=== PATIENT | male | born 1965 | race Caucasian/White ===

== ENCOUNTER 2017-05-10 10:51 | Emergency (ER) | payer BC, OTHER ==
[2017-05-10 11:19] VITALS: BP 145/89
[2017-05-10] MEDS ORDERED: Ketorolac INJ* 30 MG/ML 1 ML VIAL IM ONE (11:27)
--- NOTE | 2017-05-10 11:35 | UC ---
Headache HPI - HPI Summary HPI Summary: patient has been out of his BP medication for the last 3 weeks, he has had a headache on and off for the past 2 weeks, and thinks it is related to not having his BP meds. The headache is located at both temples and is dull. VS stable. - History Of Current Complaint Chief Complaint: UCHeadache Stated Complaint: MED REFILL Time Seen by Provider: 05/10/17 11:20 Hx Obtained From: Patient Onset/Duration: Sudden Onset, Lasting Days Onset Of Symptoms: Gradual, Still Present Timing: Constant, Days Character: Dull Location of Headache: Temporal Aggravating Factor: Nothing Allevating Factors: Nothing Associated Signs And Symptoms: Positive: Negative - Allergies/Home Medications Allergies/Adverse Reactions: Allergies Allergy/AdvReac Type Severity Reaction Status Date / Time Penicillins Allergy Unknown Verified 05/10/17 11:19 Reaction Details PMH/Surg Hx/FS Hx/Imm Hx Previously Healthy: Yes - Surgical History Surgical History: None - Family History Known Family History: Positive: Hypertension - Social History Alcohol Use: None Substance Use Type: None Smoking Status (MU): Never Smoked Tobacco Review of Systems Constitutional: Negative Skin: Negative Eyes: Negative ENT: Negative Respiratory: Negative Cardiovascular: Negative Gastrointestinal: Negative Genitourinary: Negative Motor: Negative Neurovascular: Negative Musculoskeletal: Negative Neurological: Headache Psychological: Negative All Other Systems Reviewed And Are Negative: Yes Physical Exam Triage Information Reviewed: Yes Appearance: Well-Appearing, Well-Nourished, Pain Distress Vital Signs: Initial Vital Signs Temp 98 F 05/10/17 11:14 Pulse 52 05/10/17 11:14 Resp 14 05/10/17 11:14 BP 145/89 05/10/17 11:14 Pulse Ox 100 05/10/17 11:14 Vital Signs Reviewed: Yes Eye Exam: Normal Eyes: Positive: Conjunctiva Clear ENT Exam: Normal ENT: Positive: Normal ENT inspection, Hearing grossly normal, Pharynx normal, TMs normal Dental Exam: Normal Neck exam: Normal Respiratory Exam: Normal Respiratory: Positive: Chest non-tender, Lungs clear, Normal breath sounds Cardiovascular Exam: Normal Cardiovascular: Positive: RRR, No Murmur, Pulses Normal Abdominal Exam: Normal Abdomen Description: Positive: Nontender, No Organomegaly, Soft Bowel Sounds: Positive: Present Musculoskeletal Exam: Normal Musculoskeletal: Positive: Strength Intact, ROM Intact, No Edema Neurological Exam: Normal Neurological: Positive: Alert, Muscle Tone Normal Psychological Exam: Normal Skin Exam: Normal Headache Course/Dx - Course Course Of Treatment: hx obtained, exam performed ,meds reviewed, toradol given for headache, refill of lisinopril prescribed, recommend follow up with Dr Zheng before script runs out, or BP is not well controlled. - Differential Dx/Diagnosis Differential Diagnosis/HQI/PQRI: TIA, Sinus Headache, Temporal Arteritis, Tension Headache Provider Diagnoses: Hypertension. headache, tension Discharge - Discharge Plan Condition: Stable Disposition: HOME Prescriptions: Lisinopril TAB* [Prinivil TAB*] 10 mg PO DAILY #60 Patient Education Materials: Tension Headache (ED) Additional Instructions: 1. Take the medication as prescribed. 2. You received a shot of toradol at 1130 this morning, do not take any NSAID until after 7:30 tonight. you may use tylenol or excedrin 3. Follow up with Dr Zheng before the medication runs out or if symptoms persist.
== END 2017-05-10 11:50 | disposition home or self-care (01) ==
LOC: UCCORT 10:51
DX: G44.209 Tension-type headache, unspecified, not intractable (principal); I10 Essential (primary) hypertension; Z88.0 Allergy status to penicillin
CPT/HCPCS: 96372; 99212; G0463; J1885

== ENCOUNTER 2018-05-14 07:43 | Emergency (ER) | payer BC ==
[2018-05-14 08:00] VITALS: BP 147/74
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
--- NOTE | 2018-05-14 08:40 | RAD ---
INDICATION: Right ankle pain COMPARISON: None TECHNIQUE: AP, lateral, and oblique views were obtained. FINDINGS: There are no acute bony findings. The ankle mortise is intact. The soft tissues are normal. There is a plantar calcaneal spur. IMPRESSION: HEEL SPUR, OTHERWISE NEGATIVE.
== END 2018-05-14 08:53 | disposition home or self-care (01) ==
LOC: UCCORT 07:43
DX: S90.01XA Contusion of right ankle, initial encounter (principal); Z88.0 Allergy status to penicillin; X58.XXXA Exposure to other specified factors, initial encounter; Y93.55 Activity, bike riding; Y92.9 Unspecified place or not applicable
CPT/HCPCS: 99211; G0463